=== PATIENT | female | born 1975 | race Caucasian/White ===

== ENCOUNTER → 2017-07-25 | Outpatient (CLI) | payer MEDICAID ==
--- NOTE | 2017-07-25 18:56 | Diagnostic Imaging Report ---
INDICATION: Dysmenorrhea. TECHNIQUE: Multiple real-time grayscale images were obtained of the pelvis in various projections endovaginally. Transabdominal imaging was also performed. FINDINGS: The uterus measures 9.5 x 5.6 x 5.1 cm. Endometrium is 9 mm in thickness. There is a slightly rounded area of increased echogenicity projected within the endometrium measuring 8 mm in size. No myometrial mass is seen. The right ovary measures 3.4 x 3.2 x 1.7 cm and the left ovary measures 2.2 x 2.1 x 1.5 cm. The right ovary does contain a 2.2 cm simple cyst. Multiple follicles on the left ovary are noted. There is blood flow bilaterally. No free fluid is seen. IMPRESSION: 1. 8 mm echogenic focus within the endometrium, nonspecific. This may represent a small polyp. 2. 2.2 cm simple right ovarian cyst. Dictated by: Dictated on workstation # [id number]
== END ==
LOC: RAD 12:10
PROVIDERS: ATTEND Obstetrics & Gynecology
DX: N85.8 Other specified noninflammatory disorders of uterus (principal); N83.201 Unspecified ovarian cyst, right side
CPT/HCPCS: 76830; 76856

== ENCOUNTER 2017-09-26 07:32 | Day surgery (SDC) | payer MEDICAID ==
[~2017-09-26] VITALS: Ht 154.9 cm; Wt 50.8 kg
[2017-09-26 08:00] VITALS: BP 109/51
[2017-09-26] MEDS ORDERED: DEXAMETHASONE 10 MG/ML (DECADRON) 1 ML VIAL ONE (08:00)
[2017-09-26] MEDS ORDERED: SEVOFLURANE (ULTANE) 15 ML INHAL SOLN ONE (08:00)
[2017-09-26] MEDS ORDERED: LIDOCAINE PF 2% 5 ML (XYLOCAINE) VIAL ONE (08:00)
[2017-09-26] MEDS ORDERED: proPOfol 200 MG/20 ML (DIPRIVAN) VIAL IV ONE (08:00)
[2017-09-26] MEDS ORDERED: ONDANSETRON 4 MG/2 ML (SDV) Z0FRAN ONE (08:00)
[2017-09-26] MEDS ORDERED: fentaNYL INJECTION 100 MCG/2 ML AMP ONE (08:01)
[2017-09-26] MEDS ORDERED: MIDAZOLAM 2 MG/2 ML (VERSED) VIAL ONE (08:01)
[2017-09-26] MEDS ORDERED: LACTATED RINGERS 1,000 ML IV PRN (08:07)
[2017-09-26 08:23] LABS: BASOPHILS % (AUTO) 1 % (0-10); EOSINOPHILS # (AUTO) 0.3 10^3/uL (0.0-0.3); EOSINOPHILS % (AUTO) 4 % (0-10); HEMATOCRIT 36 % (35-52); HEMOGLOBIN 11.9 G/DL (11.5-16.0); LYMPHOCYTES % (AUTO) 31 % (12-44); MEAN CORPUSCULAR HEMOGLOBIN 31 PG (25-34); MEAN CORPUSCULAR HGB CONC 33 G/DL (32-36); MEAN CORPUSCULAR VOLUME 94 FL (80-99); MEAN PLATELET VOLUME 12.1 FL (7.4-10.4); MONOCYTES # (AUTO) 0.5 X 10^3 (0.0-1.0); MONOCYTES % (AUTO) 8 % (0-12); NEUTROPHILS # (AUTO) 3.6 X 10^3 (1.8-7.8); NEUTROPHILS % (AUTO) 56 % (42-75); PLATELET COUNT 139 10^3/uL (130-400); RED BLOOD COUNT 3.83 10^6/uL (4.35-5.85); RED CELL DISTRIBUTION WIDTH 13.7 % (10.0-14.5); WHITE BLOOD COUNT 6.4 10^3/uL (4.3-11.0)
[2017-09-26] MEDS ORDERED: D5 LR IV SOLUTION 1,000 ML IV SCH (08:43)
--- NOTE | 2017-09-26 08:43 | Progress Note-Pre Operative ---
Pre-Operative Progress Note H&P Reviewed The H&P was reviewed, patient examined and no changes noted. Date Seen by Provider: Sep 26, 2017 Time Seen by Provider: 08:30 Date H&P Reviewed: Sep 26, 2017 Time H&P Reviewed: 08:00 Pre-Operative Diagnosis: AUB, Dysmenorrhea VERA VAZQUEZ DO Sep 26, 2017 8:43 am
[2017-09-26] MEDS ORDERED: HYDROcodone/APAP 5 MG/325 MG (LORTAB) TAB PO PRN (08:45)
[2017-09-26] MEDS ORDERED: KETOROLAC 30 MG/ML VIAL IVP ONE (08:45)
[2017-09-26] MEDS ORDERED: ONDANSETRON 4 MG/2 ML (SDV) Z0FRAN IVP PRN ×2 (08:45→09:30)
--- NOTE | 2017-09-26 08:45 | Discharge Inst-Women's Service ---
Discharge Inst-Women's Serv Depart Medication/Instructions New, Converted or Re-Newed RX: RX on Chart Consults/Follow Up Additional Follow Up: Yes Orders/Referrals Dr. Vazquez in 2-3 weeks Activity Activity: Activity as Tolerated Driving Instructions: No Driving for 1 Week NO SMOKING: NO SMOKING Nothing Inside Vagina: No Douching, No [place], No Tampons Diet Discharge Diet: No Restrictions Symptoms to Report to : Bleeding Excessive, Pain Increased, Fever Over 101 Degrees F, Vaginal Bleeding Increase, Questions/Concerns For Any Problems or Questions: Contact Your Physician VERA VAZQUEZ DO Sep 26, 2017 8:44 am
[2017-09-26] MEDS ORDERED: ACHD5005 PO (08:46)
[2017-09-26] MEDS ORDERED: IBUP-1773 PO (08:46)
[2017-09-26] MEDS ORDERED: BUPIVACAINE 0.25% 30 ML (SENSORCAINE) VIAL ONE (09:14)
[2017-09-26] MEDS ORDERED: morphine INJ 10 MG/ML 1ML (SYR OR VIAL) ONE (09:19)
[2017-09-26] MEDS ORDERED: morphine INJ 10 MG/ML 1ML (SYR OR VIAL) IVP PRN (09:30)
[2017-09-26 10:05] VITALS: BP 103/82
[2017-09-26 10:35] VITALS: BP 97/65
[2017-09-26 11:05] VITALS: BP 97/58
[2017-09-26 11:10] VITALS: BP 97/58
--- NOTE | 2017-09-26 14:06 | Anesthesia-General Post-Op ---
General Patient Condition Mental Status/LOC: Same as Preop Cardiovascular: Satisfactory Nausea/Vomiting: Absent Respiratory: Satisfactory Pain: Controlled Complications: Absent Post Op Complications Complications None Follow Up Care/Instructions Patient Instructions None needed. Anesthesia/Patient Condition Patient Condition Patient is doing well, no complaints, stable vital signs, no apparent adverse anesthesia problems. No complications reported per nursing. [place] [facility] [place] No ANNY CANAS CRNA Sep 26, 2017 14:06
--- NOTE | 2017-09-26 16:37 | OPERATIVE REPORT ---
DATE OF SERVICE: PREOPERATIVE DIAGNOSES: 1. A 40-year-old female with abnormal uterine bleeding. 2. Dysmenorrhea. POSTOPERATIVE DIAGNOSES: 1. A 40-year-old female with abnormal uterine bleeding. 2. Dysmenorrhea. PROCEDURE: D and C hysteroscopy. SURGEON: Victoriano Chamberlain DO ANESTHESIA: General endotracheal. ESTIMATED BLOOD LOSS: Minimal. URINE OUTPUT: 20 mL drained clear at the end of procedure. FLUIDS: 800 mL lactated Ringer's solution. SPECIMENS SENT: Endometrial curettings including endometrial polyp. INDICATIONS FOR PROCEDURE: This 42-year-old female with a consultation in my office for history ongoing of heavy painful periods that have become acutely more heavy and painful in the last six months. We discussed endometrial biopsy in the office versus proceeding with D and C hysteroscopy. Initial testing in the office for infections, etiology was negative and endocrinologic etiology was also found to be negative. I discussed with the patient in detail risks of the procedure including risk of bleeding, infection, damage to any surrounding structures including, but not limited to bowel, bladder, ureter, kidneys, possible need for a hysterectomy down the line, postoperative expectation, recovery timeframe, risk from anesthesia and even . After everything was discussed with the patient, consent was obtained in the preoperative area. The patient was taken to the operating room. OPERATIVE REPORT IN DETAIL: Once in the operating room, general anesthesia was found to be adequate, placed in dorsal lithotomy position, prepped and draped in normal sterile fashion. Straight catheterization is used to drain the bladder. A weighted speculum inserted into the patient's vagina. A ring retractor was used to visualize the cervix, which was grasped at 12 o'clock position using the long Allis clamp and then performed paracervical block at 3 and 9 o'clock positions on the cervix using 0.25% Marcaine, 5 mL were injected at each site. Care was taken to aspirate before injecting. After which I gently sound the uterine cavity that was found to be 8 cm. I then able to advance an 8 mm hysteroscope into the uterus without any dilatation. Upon entry, I used normal saline as my visual medium. I am able to use the Truclear device to manage my fluid. There is evidence of a potential endometrial polyp on the anterior fundal aspect of the uterus, otherwise grossly normal appearing uterine cavity performing a gentle curettage of all endometrial cavity. I am able to collect a small to moderate amount of endometrial tissue. Reinspection of this area using the hysteroscope reveals resolution of this polyp that was previously seen after which there was no active bleeding noted. All instruments were removed from the patient's vagina. The patient tolerated the procedure well and sent to recovery area in stable condition. Lap and sponge counts correct at the end of the procedure and all counts correct. Job ID: [id number] DocumentID: [id number] Dictated Date: 09/26/2017 09:36:19 Back Seam Stitcher Date: 09/26/2017 16:36:45 Dictated By: DO HAKEEM WOODRUFF
[2017-10-24] MEDS ORDERED: DOCU100C37 PO (07:15)
[2017-10-24] MEDS ORDERED: SIME80TA16 PO (07:15)
[2017-10-24] MEDS ORDERED: HYDR-34 PO (07:15)
[2017-10-24] MEDS ORDERED: IBUP-844 PO (07:15)
== END 2017-09-26 11:10 | disposition home or self-care (01) ==
LOC: SDC 07:32
PROVIDERS: ATTEND Obstetrics & Gynecology
DX: N94.6 Dysmenorrhea, unspecified (principal); F17.210 Nicotine dependence, cigarettes, uncomplicated
CPT/HCPCS: 36415; 84703; 85025; 86850; 86900; 86901; 87081; 88305; 94664

== ENCOUNTER 2017-10-21 08:55 | Outpatient (CLI) | payer MEDICAID ==
[~2017-10-21] VITALS: Ht 154.9 cm; Wt 50.8 kg
[~2017-10-21 08:55] MED LIST: ACHD5005 PO; IBUP-1773 PO
[2017-10-21] MEDS ORDERED: SUCR1TAB36 PO (09:05)
[2017-10-21] MEDS ORDERED: OMEP40CA36 PO (09:05)
== END 2017-10-21 09:46 | disposition home or self-care (01) ==
LOC: PREOP 08:55
PROVIDERS: ATTEND Obstetrics & Gynecology
DX: Z01.818 Encounter for other preprocedural examination (principal)
CPT/HCPCS: 87081

== ENCOUNTER 2017-10-24 06:45 | Day surgery (SDC) | payer MEDICAID ==
[~2017-10-24] VITALS: Ht 154.9 cm; Wt 50.8 kg
[2017-10-24 06:45] VITALS: BP 100/55
[~2017-10-24 06:45] MED LIST changes: +OMEP40CA36 PO; +SUCR1TAB36 PO
[2017-10-24] MEDS ORDERED: BUPIVACAINE 0.25% 30 ML (SENSORCAINE) VIAL ONE (06:52)
[2017-10-24] MEDS: LACTATED RINGERS 1,000 ML IV PRN ×3 (07:00→09:20)
[2017-10-24] MEDS ORDERED: ceFAZolin INJECTION 1,000 MG in NS (IVPB) 50 ML IV ONE (07:00)
[2017-10-24] MEDS ORDERED: metroNIDAZOLE 500MG/100ML IVPB 100 ML IV ONE (07:00)
[2017-10-24] MEDS ORDERED: fentaNYL INJECTION 100 MCG/2 ML AMP ONE ×2 (07:01→09:16)
[2017-10-24] MEDS ORDERED: DEXAMETHASONE 10 MG/ML (DECADRON) 1 ML VIAL ONE (07:01)
[2017-10-24] MEDS ORDERED: MIDAZOLAM 2 MG/2 ML (VERSED) VIAL ONE (07:01)
[2017-10-24] MEDS ORDERED: LACTATED RINGERS 1,000 ML IV ONE (07:01)
[2017-10-24] MEDS ORDERED: ROCURONIUM 10 MG/ML 5 ML SYRINGE IV ONE (07:01)
[2017-10-24] MEDS ORDERED: proPOfol 200 MG/20 ML (DIPRIVAN) VIAL IV ONE (07:01)
[2017-10-24] MEDS ORDERED: ONDANSETRON 4 MG/2 ML (SDV) Z0FRAN ONE (07:01)
[2017-10-24] MEDS ORDERED: LIDOCAINE PF 2% 5 ML (XYLOCAINE) VIAL ONE (07:01)
[2017-10-24] MEDS ORDERED: KETOROLAC 30 MG/ML VIAL ONE (07:01)
--- NOTE | 2017-10-24 07:08 | Progress Note-Pre Operative ---
Pre-Operative Progress Note H&P Reviewed The H&P was reviewed, patient examined and no changes noted. Date Seen by Provider: Oct 24, 2017 Time Seen by Provider: 07:08 Date H&P Reviewed: Oct 24, 2017 Time H&P Reviewed: 07:00 Pre-Operative Diagnosis: Endometrial hyperplasia, AUB VERA VAZQUEZ DO Oct 24, 2017 07:08
--- NOTE | 2017-10-24 07:12 | Discharge Inst-Women's Service ---
Discharge Inst-Women's Serv Depart Medication/Instructions New, Converted or Re-Newed RX: RX on Chart Consults/Follow Up Additional Follow Up: Yes Orders/Referrals Dr. Chamberlain in 7-10 days and in 8 weeks Activity Activity: Activity as Tolerated Driving Instructions: No Driving for 1 Week NO SMOKING: NO SMOKING Nothing Inside Vagina: No Douching, No [place], No Tampons Diet Discharge Diet: No Restrictions Symptoms to Report to : Bleeding Excessive, Pain Increased, Fever Over 101 Degrees F, Vaginal Bleeding Increase, Questions/Concerns For Any Problems or Questions: Contact Your Physician Skin/Wound Care Infection Signs and Symptoms: Increased Redness, Foul Odor of Wound, Increased Drainage, Skin Itchy or Has a Rash, Increased Swelling, Temperature Above 101 F Operative Area Clean and Dry: Keep Incision Clean/Dry Stitches/[place]/Dermabond: Dermabond, Care of Stitches Bathing Instructions: VERA Weinberg DO Oct 24, 2017 07:12
[2017-10-24] MEDS ORDERED: ANTACID SUSP 30 ML UDC (MYLANTA) PO PRN (07:15)
[2017-10-24] MEDS ORDERED: HYDROcodone/APAP 7.5 MG/325 MG (LORTAB, LORCET PLUS) TABLET PO PRN (07:15)
[2017-10-24] MEDS ORDERED: DOCUSATE SODIUM 100 MG (COLACE) CAP PO PRN (07:15)
[2017-10-24] MEDS ORDERED: HYDR-34 PO (07:15)
[2017-10-24] MEDS ORDERED: IBUP-844 PO (07:15)
[2017-10-24] MEDS ORDERED: SIME80TA16 PO (07:15)
[2017-10-24] MEDS ORDERED: CHLORASEPTIC LOZENGE MM PRN (07:15)
[2017-10-24] MEDS ORDERED: DOCU100C37 PO (07:15)
[2017-10-24] MEDS ORDERED: ZOLPIDEM 5 MG (AMBIEN) TAB PO PRN (07:15)
[2017-10-24] MEDS ORDERED: ONDANSETRON 4 MG/2 ML (SDV) Z0FRAN IV PRN (07:15)
[2017-10-24] MEDS ORDERED: SIMETHICONE 80 MG (MYLICON) CHEW PO PRN (07:15)
[2017-10-24 07:27] LABS: BASOPHILS % (AUTO) 1 % (0-10); EOSINOPHILS # (AUTO) 0.2 10^3/uL (0.0-0.3); EOSINOPHILS % (AUTO) 3 % (0-10); HEMATOCRIT 42 % (35-52); LYMPHOCYTES # (AUTO) 1.5 X 10^3 (1.0-4.0); LYMPHOCYTES % (AUTO) 25 % (12-44); MEAN CORPUSCULAR HEMOGLOBIN 31 PG (25-34); MEAN CORPUSCULAR HGB CONC 33 G/DL (32-36); MEAN CORPUSCULAR VOLUME 92 FL (80-99); MEAN PLATELET VOLUME 11.5 FL (7.4-10.4); MONOCYTES # (AUTO) 0.6 X 10^3 (0.0-1.0); MONOCYTES % (AUTO) 9 % (0-12); NEUTROPHILS # (AUTO) 3.7 X 10^3 (1.8-7.8); NEUTROPHILS % (AUTO) 63 % (42-75); PLATELET COUNT 180 10^3/uL (130-400); RED BLOOD COUNT 4.58 10^6/uL (4.35-5.85); RED CELL DISTRIBUTION WIDTH 13.5 % (10.0-14.5); WHITE BLOOD COUNT 5.9 10^3/uL (4.3-11.0)
[2017-10-24] MEDS ORDERED: PHENYLEPHRINE 100 MCG/ML 10 ML (ANESTHESIA) SYR ONE (08:19)
[2017-10-24] MEDS ORDERED: GLYCOPYRROLATE 0.2 MG/ML (ROBINUL) 2 ML VIAL ONE ×2 (09:09→09:10)
[2017-10-24] MEDS ORDERED: NEOSTIGMINE 1 MG/ML 5 ML SYRINGE ONE (09:09)
[2017-10-24] MEDS ORDERED: SEVOFLURANE (ULTANE) 15 ML INHAL SOLN ONE (09:18)
[2017-10-24] MEDS: KETOROLAC 30 MG/ML VIAL IV PRN ×3 (09:20→22:50)
[2017-10-24] MEDS ORDERED: HYDROmorphone 1 MG/ML (DILAUDID) 1 ML SYRINGE ONE (09:35)
[2017-10-24] MEDS ORDERED: MEPERIDINE (DEMEROL) INJ 50 MG/ML IVP PRN (09:45)
[2017-10-24] MEDS ORDERED: fentaNYL INJECTION 100 MCG/2 ML AMP IVP PRN (09:45)
[2017-10-24] MEDS ORDERED: ONDANSETRON 4 MG/2 ML (SDV) Z0FRAN IVP PRN (09:45)
[2017-10-24] MEDS: HYDROmorphone 1 MG/ML (DILAUDID) 1 ML SYRINGE IV PRN ×2 (09:52→10:02)
[2017-10-24] MEDS: LACTATED RINGERS 1,000 ML IV SCH ×5 (11:10→19:56)
[2017-10-24 12:00] VITALS: BP 92/53
[2017-10-24] MEDS ORDERED: NS IV 500 ML 500 ML ONE (14:19)
[2017-10-24] MEDS ORDERED: FUROSEMIDE 40 MG/4 ML INJ (LASIX) IVP ONE (14:45)
[2017-10-24] MEDS ORDERED: FUROSEMIDE 40 MG/4 ML INJ (LASIX) ONE (14:50)
--- NOTE | 2017-10-24 15:50 | OPERATIVE REPORT ---
DATE OF SERVICE: PREOPERATIVE DIAGNOSES: 1. A 42-year-old female with endometrial hyperplasia. 2. Abnormal uterine bleeding. POSTOPERATIVE DIAGNOSES: 1. A 42-year-old female with endometrial hyperplasia. 2. Abnormal uterine bleeding. PROCEDURE: Robotic-assisted total laparoscopic hysterectomy with bilateral salpingectomy. SURGEON: Dr. Victoriano Vazquez. ASSISTANCE REPRESENTATIVE: AARON Wheatley. ANESTHESIA: General endotracheal. ESTIMATED BLOOD LOSS: Minimal. URINE OUTPUT: 20 mL clear at the end of the procedure. FLUIDS: 2 liters of lactated Ringer solution. FINDINGS: A slightly enlarged uterus that appears grossly normal from the serosal surface. Grossly normal bilateral fallopian tubes with evidence of prior tubal ligation. Grossly normal bilateral ovaries. SPECIMEN SENT: Uterus, bilateral fallopian tubes. INDICATION FOR PROCEDURE: This 42-year-old female is the patient who I had initially seen in my office for abnormal heavy uterine bleeding. She underwent D and C, which revealed endometrial hyperplasia at the time of D and C pathology collection. I discussed with the patient this findings in the office. She was a longtime smoker and wished to proceed with hysterectomy if at all possible and hyperplasia did give us another reason to consider hysterectomy. She was given the option of watching and waiting and resampling the tissue in 6 months. However, at this point, she wishes to move forward with more aggressive measures. Risk of hysterectomy was discussed with the patient in detail including risks of bleeding, infection, damage to surrounding structures including, but not limited to bowel, bladder, ureter, kidneys, pre and postoperative expectations as well as postoperative complications and postoperative followup were all discussed with the patient. After all of her questions were answered, consent was obtained. The patient was taken to the operating room. OPERATIVE REPORT IN DETAIL: Once in the operating room, general anesthesia was found to be adequate, placed in dorsal lithotomy position, prepped and draped in normal sterile fashion. A weighted speculum was inserted in the patient's vagina after Gonzales catheter was placed using sterile technique. Weighted speculum was used to visualize the cervix, which was grasped at 12 o'clock position using a long Allis clamp and 0 Vicryl suture was placed in the anterior lip of the cervix to allow for excellent retraction of the cervix. I then removed the Allis clamp and selected an 8 cm Nell uterine manipulator tip after the uterus was sounded to 8 cm. I advanced the 8 cm Nell uterine manipulator tip into the uterine fundus deploying the balloon and advanced a 3.5 cm colpotomy ring around the vaginal fornix. Once this was in place, I am able to appreciate excellent bimanual manipulation. I then turned my attention to the abdomen where a change of gloves was performed. Infraumbilically, I infiltrated this area using 0.25% Marcaine and make an 8 mm incision and directed a Veress needle through this incision until intraperitoneal placement was confirmed using saline drop test. insufflated using CO2 gas and opening pressure of 5 mmHg is noted. I proceeded to maximum pressure of 15 mmHg, at which point, I removed the Veress needle and introduced an 8 mm blunt da Andrew camera trocar. Once this was in place, I am able to confirm intraperitoneal placement using the da Andrew laparoscope. I then had the patient placed in steep Trendelenburg and made to visualize all my findings as described above. I placed two lateral trocars approximately 8 cm lateral to my infraumbilical trocar. The skin was infiltrated using 0.25% Marcaine and incisions were made with a knife and the trocars were placed under direct visualization of the laparoscope. Once these were in place, I did bring in the da Andrew robot and docked in the appropriate fashion placing the vessel sealer in the left hand and a monopolar shear in the right hand. I took my place at the operative console and performed the following dissection bilaterally. Starting at the uteroovarian ligament, I bipolar cauterized and transected using the vessel sealer. I then created a window in the mesosalpinx and took this laterally using the vessel sealer transecting the fallopian tube from the mesosalpinx. I then am able to grasp the round ligament, bipolar cauterized and transect this using the vessel sealer. I then grasped the entire broad ligament, bipolar cauterized and transected using the vessel sealer down to the level of the lower uterine segment, at which point, I the anterior and posterior leaflets of the broad ligament. The anterior leaflet was taken around to the anterior vaginal fornix. The posterior leaflet dissection was taken around to the posterior vaginal fornix, which allows me to skeletonize the uterine vessels laterally staying clear of the ureter and bipolar cauterize these using the vessel sealer. I then created a colpotomy at 12 o'clock using a monopolar shear, able to visualize the Nell colpotomy ring and I take my colpotomy circumferentially around the vaginal fornix amputating the cervix away from the vagina. The specimen and the fallopian tubes were then all removed through the vagina. The vaginal cuff was then closed in the lateral vaginal apices using 2-0 Vicryl suture in a [id number] fashion, colposuspending them to the uterosacral ligaments. I then closed the remainder of the vaginal cuff using 2-0 V-Loc in a running fashion, after which there was no active bleeding noted from any of my dissection planes. I then converted back to laparoscopy and docking the robot and copiously irrigated the pelvis using normal saline. I placed FloSeal hemostatic agent over my vaginal cuff dissection planes to ensure excellent postoperative hemostasis. I then had the patient taken out of steep Trendelenburg were I removed the lateral trocars under visualization of the laparoscope. The infraumbilical trocar was left in place both to release insufflation and to introduce 10 mL of 0.25% Marcaine into the peritoneal cavity for postoperative pain management. I then removed this trocar as well. The skin was reapproximated using 4-0 Monocryl in interrupted subcuticular stitches. Dermabond was applied to the incision and Band-Aids were placed over these. Gonzales catheter was left in place. The patient tolerated the procedure well and was taken to recovery area in stable condition. Lap and sponge count was correct at the end of the procedure. Instrument counts were correct as well. Job ID: [id number] DocumentID: [id number] Dictated Date: 10/24/2017 09:50:54 Stamps Or Coins Salesperson Date: 10/24/2017 15:49:42 Dictated By: VICTORIANO VAZQUEZ DO
[2017-10-24 16:00] VITALS: BP 91/57
[2017-10-24 20:00] VITALS: BP 95/55
[2017-10-25] MEDS ORDERED: IBUPROFEN 600 MG (MOTRIN) TAB PO PRN
[2017-10-25 00:10] VITALS: BP 91/50
[2017-10-25] MEDS: LACTATED RINGERS 1,000 ML IV SCH (03:42)
[2017-10-25 04:10] VITALS: BP 94/49
[2017-10-25] MEDS ORDERED: NS IV 500 ML 500 ML IV SCH (06:45)
[2017-10-25 08:39] VITALS: BP 98/43
--- NOTE | 2017-10-25 08:51 | Progress Note-Standard ---
Standard Progress Note Progress Notes/Assess & Plan Date Seen by Provider: Oct 25, 2017 Time Seen by Provider: 08:50 Progress/Assessment & Plan Patient kept overnight due to urinary retention. Had straight cath last night, tried to do this again this morning and the patient refused. Trial of bethachol ordered this morning, may consider replacing catheter if no void. Vital Sign - Last 24 Hours 10/24/17 10/24/17 10/24/17 10/24/17 10:35 12:00 16:00 20:00 Temp 97.2 97.6 98.0 Pulse 44 56 56 Resp 16 18 18 B/P (MAP) 92/53 (66) 91/57 (68) 95/55 (68) Pulse Ox 94 98 98 O2 Delivery Room Air Room Air Room Air Room Air 10/24/17 10/25/17 10/25/17 10/25/17 21:00 00:10 04:10 08:08 Temp 97.8 97.9 Pulse 54 52 Resp 18 18 B/P (MAP) 91/50 (64) 94/49 (64) Pulse Ox 98 97 O2 Delivery Room Air Room Air Room Air 10/25/17 08:39 Temp 98.4 Pulse 43 Resp 20 B/P (MAP) 98/43 (61) Pulse Ox 97 O2 Delivery Room Air Intake and Output 10/24/17 10/24/17 10/25/17 15:00 23:00 07:00 Intake Total 3110 ml 740 ml 200 ml Output Total 120 ml 0 ml 300 ml Balance 2990 ml 740 ml -100 ml VERA VAZQUEZ DO Oct 25, 2017 8:51 am
[2017-10-25] MEDS ORDERED: BETHANECHOL 25 MG (URECHOLINE) TAB PO NR (08:58)
[2017-10-25 11:55] VITALS: BP 98/43
--- NOTE | 2017-10-25 15:32 | Anesthesia-General Post-Op ---
General Patient Condition Mental Status/LOC: Same as Preop Cardiovascular: Satisfactory Nausea/Vomiting: Absent Respiratory: Satisfactory Pain: Controlled Complications: Absent Post Op Complications Complications None Follow Up Care/Instructions Patient Instructions None needed. Anesthesia/Patient Condition Patient Condition Patient is doing well, no complaints, stable vital signs, no apparent adverse anesthesia problems. No complications reported per nursing. [place] [facility] [place] ALEXANDRIA MEJÍA CRNA Oct 25, 2017 15:32
== END 2017-10-25 11:55 | disposition home or self-care (01) ==
LOC: SDC 06:45 → WS 11:12 → SDC 10-25 11:55
PROVIDERS: ATTEND Obstetrics & Gynecology
DX: N85.00 Endometrial hyperplasia, unspecified (principal); N93.9 Abnormal uterine and vaginal bleeding, unspecified; D25.2 Subserosal leiomyoma of uterus; N83.8 Other noninflammatory disorders of ovary, fallopian tube and broad ligament; R33.9 Retention of urine, unspecified; F17.210 Nicotine dependence, cigarettes, uncomplicated; K21.9 Gastro-esophageal reflux disease without esophagitis
CPT/HCPCS: 36415; 84703; 85025; 86850; 86900; 86901; 94664

== ENCOUNTER → 2020-12-06 | Outpatient (CLI) | payer MEDICAID ==
[~2020-12-06] MED LIST changes: +DOCU100C37 PO; +HYDR-34 PO; +IBUP-844 PO; -OMEP40CA36 PO; +OMEP40CA6 PO; +SIME80TA16 PO
--- NOTE | 2020-12-06 14:19 | Diagnostic Imaging Report ---
INDICATION: Palpable lump in the left breast. COMPARISON: Correlation is made with the diagnostic mammogram from earlier this same day. TECHNIQUE: Sonographic interrogation of the area of palpable abnormality in the inner left breast was performed. This corresponds to the 9:30 to 10 o'clock location. FINDINGS: There are two cystic lesions at this location approximately 2 cm from the nipple. One cyst measures 9 mm x 8 mm x 10 mm. The second cyst measures 12 mm x 7 mm x 9 mm. Both contain a small amount of internal debris. There is posterior acoustic enhancement. No internal vascularity is present. No solid masses are detected. IMPRESSION: Slightly complex cysts at the 9:30 to 10:00 location of the left breast 2 cm from the nipple, corresponding to the patient's palpable abnormality. These have benign features. The patient may return to routine annual screening mammography. ACR BI-RADS Category 2: Benign findings. Dictated by: Dictated on workstation # [id number]
--- NOTE | 2020-12-06 14:20 | Diagnostic Imaging Report ---
INDICATION: Palpable lump left breast. COMPARISON: Correlation is made with the prior mammograms from 11/12/2018 and 09/10/2017. TECHNIQUE: 2D and 3D bilateral diagnostic mammography was performed with CAD. A BB marker was placed at the area of palpable abnormality in the medial left breast. FINDINGS: Both breasts are heterogeneously dense, limiting the sensitivity of mammography. No dominant mass or malignant appearing microcalcifications are seen. There are occasional benign calcifications noted. The axillae are unremarkable. IMPRESSION: No mammographic features suspicious for malignancy are identified. Even so, directed sonographic interrogation of the area of palpable abnormality in the left breast is recommended and will be performed today. ACR BI-RADS Category 0: Incomplete. (Needs additional imaging evaluation). Result letter will be mailed to the patient. Note: At least 10% of breast cancer is not imaged by mammography. Dictated by: Dictated on workstation # [id number]
== END ==
LOC: RAD 12:32
PROVIDERS: ATTEND Family Medicine
DX: N60.02 Solitary cyst of left breast (principal)
CPT/HCPCS: 76642; 77062; 77066

== ENCOUNTER 2020-12-12 05:37 | Outpatient (CLI) | payer MEDICAID ==
[~2020-12-12] VITALS: Ht 154 cm; Wt 50.0 kg
[2020-12-12] MEDS ORDERED: TRM50T PO (10:40)
== END 2020-12-12 10:44 | disposition home or self-care (01) ==
LOC: PREOP 05:37
PROVIDERS: ATTEND Surgery
DX: Z01.818 Encounter for other preprocedural examination (principal)

== ENCOUNTER 2020-12-15 08:47 | Day surgery (SDC) | payer MEDICAID ==
[~2020-12-15] VITALS: Ht 154 cm; Wt 50.0 kg
[2020-12-15] VITALS (7 sets, daily range): BP systolic 105–118; BP diastolic 50–75
[~2020-12-15 08:47] MED LIST changes: +TRM50T PO
--- OUTSIDE RECORDS SUMMARY | 2020-12-15 08:51 | XMS REPORT | Clinical Summary ---
Author Author [facility] Organization [facility] Address Unknown Phone Unavailable Care Team Providers Care Account Services Analyst Name Role Phone Paige Harley MD PCP Source Comments Some departments are not documenting in the electronic medical record. If you d o not see the information that you expected, contact Release of Information in [facility] [employer] Information Management department at [phone] for further assistan ce in locating additional records.[facility] Allergies Comments Active Allergy Reactions Severity Noted Date Codeine Sulfate UNKNOWN Low 02/24/2019 Penicillins UNKNOWN Low 02/24/2019 Medications End Date Status Medication Sig Dispensed Refills Start Date Active ondansetron (ZOFRAN) 4 mg Take 4 mg by 0 tablet mouth every 8 hours as needed for Nausea or Vomiting. Active traMADoL (ULTRAM) 50 mg 0 tablet 1 Active Problems Problem Noted Date Degenerative disc disease, lumbar 04/06/2020 Synovial cyst of lumbar spine 03/04/2019 Encounters Care Team Description Date Type Specialty Hector Pereyra DO General Question (spine injections) 12/08/2020 Telephone Rehabilitation [facility] from Last 3 Months Surgical History Surgery Date Site/Laterality Comments HX HAND SURGERY Bilateral GALLBLADDER SURGERY NASAL SINUS SURGERY HYSTERECTOMY Medical History Medical History Date Comments Hip pain Sprain and strain of wrist Carpal tunnel syndrome Cholesterolosis gallbladder Family History Medical History Relation Name Comments Cancer Father Cancer Mother Relation Name Status Comments Father Alive Mother Social History Date Tobacco Use Types Packs/Day Years Used Light Tobacco Smoker Smokeless Tobacco: Never Used Comments Alcohol Use Standard Drinks/Week Not Currently 0 (1 standard drink = 0.6 o z pure alcohol) Sex Assigned at Date Recorded 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 Vital Signs Reading Time Taken Comments Vital Sign 107/85 04/25/2020 10:38 AM TEAM AUTOMOBILE ASSEMBLER Blood Pressure 56 04/25/2020 9:43 AM TEAM AUTOMOBILE ASSEMBLER Pulse 36.5 C (97.7 F) 04/25/2020 10:38 AM TEAM AUTOMOBILE ASSEMBLER Temperature - - Respiratory Rate 99% 04/25/2020 10:38 AM TEAM AUTOMOBILE ASSEMBLER Oxygen Saturation - - Inhaled Oxygen Concentration 51.4 kg (113 lb 4.8 oz) 04/25/2020 9:43 AM TEAM AUTOMOBILE ASSEMBLER Weight 157.5 cm (5' 2") 04/25/2020 9:43 AM TEAM AUTOMOBILE ASSEMBLER Height 20.72 04/25/2020 9:43 AM TEAM AUTOMOBILE ASSEMBLER Body Mass Index Plan of Treatment Health Maintenance Due Date Last Done Comments HIV SCREENING 07/07/1990 DTAP/TDAP VACCINES (1 - 07/07/1993 Tdap) HEPATITIS C SCREENING 07/07/1993 PHYSICAL (COMPREHENSIVE) 07/07/1993 EXAM CERVICAL CANCER SCREENING 07/07/1996 BREAST CANCER SCREENING 2015 INFLUENZA VACCINE 10/23/2020 Results Not on filefrom Last 3 Months Insurance Type Payer Benefit Subscriber ID Effective Phone Address Plan / Dates Group AETNA MEDICAID AETNA [id number] 2018-P [facility] [address] ([place]) [place] [phone] Advance Directives 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
--- OUTSIDE RECORDS SUMMARY | 2020-12-15 08:52 | XMS REPORT | Encounter Summary ---
Author Author [facility] Organization [facility] Address Unknown Phone Unavailable Care Team Providers Care Combiner Operator Name Role Phone Paige Harley MD PCP Reason for Visit * Reason Onset Date Comments General Question 12/08/2020 spine injections Encounter Details Care Team Description [place] [address] [place] [address] [phone] General Question (spine injections) 12/08/2020 Telephone Comprehensive Spine Rehab Med: [facility]: 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 encounter Functional Status Date of Assessment Functional Status Response 04/06/2020 Does the patient have a hearing impairment: No 04/06/2020 Does the patient have a visual impairment: Yes 04/06/2020 Does the patient have impaired ambulation: Yes 04/06/2020 Does the patient have an activity of daily living No (ADL) impairment: 04/06/2020 Does the patient have an instrumental activity of No daily living (IADL) impairment: Date of Assessment Cognitive Status Response 04/06/2020 Does the patient have a cognitive impairment: No documented as of this encounter Miscellaneous Notes * Telephone Encounter - Molly Galarza RN - 12/08/2020 1:36 PM CDT VM from patient - needs to speak with somebody about spine shots Spoke with patient - states she comes in and get shots and doesn't feel they are working because she is sore again and would like to go a different route. Janny willis with making a follow up appointment for updated plan of care documented in this encounter Plan of Treatment Not on filedocumented as of this encounter Visit Diagnoses Not on filedocumented in this encounter Additional Health Concerns Assessment Noted Time A fall risk assessment has been completed for the pat ient 04/06/2020 9:01 AM CHAIN SAW MECHANIC documented as of this encounter
[2020-12-15] MEDS ORDERED: CLINDAMYCIN 600 MG/50 ML IVPB 50 ML IV ONE (09:00)
[2020-12-15] MEDS: LACTATED RINGERS 1,000 ML IV PRN ×2 (09:20→11:38)
[2020-12-15] MEDS ORDERED: MULT-1136 PO (09:28)
[2020-12-15] MEDS ORDERED: LIDOCAINE/EPI 1%-1:100,000 (XYLOCAINE) 10 ML ONE (09:34)
--- NOTE | 2020-12-15 10:33 | Progress Note-Pre Operative ---
Pre-Operative Progress Note H&P Reviewed The H&P was reviewed, patient examined and no changes noted. Date Seen by Provider: Dec 15, 2020 Time Seen by Provider: 10:33 Date H&P Reviewed: Dec 15, 2020 Time H&P Reviewed: 10:33 Pre-Operative Diagnosis: left breast mass AURORA SIMPSON DO Dec 15, 2020 10:33
[2020-12-15] MEDS ORDERED: proPOfol 200 MG/20 ML (DIPRIVAN) VIAL IV ONE (10:34)
[2020-12-15] MEDS ORDERED: fentaNYL INJ 100 MCG/2 ML AMP ONE (10:34)
[2020-12-15] MEDS ORDERED: LIDOCAINE PF 2% 5 ML (XYLOCAINE) VIAL ONE (10:34)
[2020-12-15] MEDS ORDERED: MIDAZOLAM 2 MG/2 ML (VERSED) VIAL ONE (10:34)
[2020-12-15] MEDS ORDERED: ONDANSETRON 4 MG/2 ML (SDV) Z0FRAN ONE (10:34)
[2020-12-15] MEDS ORDERED: ATROPINE INJ 0.4 MG/ML SDV ONE (11:29)
[2020-12-15] MEDS ORDERED: SEVOFLURANE (ULTANE) 15 ML INHAL SOLN ONE (12:06)
[2020-12-15] MEDS ORDERED: MEPERIDINE (DEMEROL) INJ 50 MG/ML IVP ONE (12:15)
[2020-12-15] MEDS ORDERED: morphine INJ 10 MG/ML 1ML (SYR OR VIAL) IVP ONE (12:15)
[2020-12-15] MEDS ORDERED: ONDANSETRON 4 MG/2 ML (SDV) Z0FRAN IVP PRN (12:15)
[2020-12-15] MEDS ORDERED: HYDROmorphone 2 MG/ML VIAL (DILAUDID) IV ONE (12:15)
[2020-12-15] MEDS ORDERED: PROMETHAZINE INJ 25 MG/ML (PHENERGAN) AMP IVP ONE (12:15)
[2020-12-15] MEDS ORDERED: TRAM50TA3 PO (12:21)
--- NOTE | 2020-12-15 12:22 | Discharge Inst-Simple/Standard ---
Discharge Inst-Standard Discharge Medications New, Converted or Re-Newed RX: Transmitted to Pharmacy Patient Instructions/Follow Up Plan of Care/Instructions/FU: 2 weeks Kvng Activity as Tolerated: No Discharge Diet: Regular Diet Other Inst to Patient Follow up Appt: Make appointment for 2 week. Instructions: No lifting greater than 20 pounds. No strenuous activity. May shower in 24 hours, no tub bath or soaking. Use incentive spirometer at home as directed. No Smoking Skin/Wound Care: You have special glue over your incision that will fall off on it's own. Symptoms to Report: Appetite Changes, Extremity Discoloration, Numbness/Tingling, Swelling Increased, Bleeding Excessive, Eyesight Changes, Pain Increased, Urine Color Change, Constipation(Persistent), Fever over 101 degree F, Pain/Pressure in chest, Urinating Difficulty, Cough Up/Vomit Blood, Heart Beat Irreg/Pounding, Pain/Pressure in jaw, Vaginal Bleeding Increase, Cramps in feet or legs, Lightheadedness, Pain/Pressure in shoulder, Diarrhea(Persistent), Memory Changes Suddenly, Questions/Concerns, Weight gain consecutive days, Dizziness/Fainting, Nausea/Vomiting, Shortness of Breath, Weight gain over 2 pounds If questions or concerns contact your physician Or seek help at emergency department. AURORA SIMPSON DO Dec 15, 2020 12:22
--- NOTE | 2020-12-15 12:49 | Anesthesia-General Post-Op ---
General Patient Condition Mental Status/LOC: Same as Preop Cardiovascular: Satisfactory Nausea/Vomiting: Absent Respiratory: Satisfactory Pain: Controlled Complications: Absent Post Op Complications Complications None Follow Up Care/Instructions Patient Instructions None needed. Anesthesia/Patient Condition Patient Condition Patient is doing well, no complaints, stable vital signs, no apparent adverse anesthesia problems. No complications reported per nursing. KYLAH HERRMANN CRNA Dec 15, 2020 12:49
--- NOTE | 2020-12-15 22:32 | OPERATIVE REPORT ---
DATE OF SERVICE: 12/15/2020 PREOPERATIVE DIAGNOSIS: Left breast mass. POSTOPERATIVE DIAGNOSIS: Left breast mass. PROCEDURE: Excision of left breast mass, 2.5 x 2.5 cm. SURGEON: Aurora Calderon DO ANESTHESIA: General. ESTIMATED BLOOD LOSS: Minimal. COMPLICATIONS: None. INDICATIONS: The patient is a 45-year-old female with a left breast mass is tender and causes discomfort. She has had mammographic findings, which appeared to be benign. The patient has still significant tenderness and wishes to have this area removed. She understands risks and benefits and wishes to proceed. Consent was signed in the chart. DESCRIPTION OF PROCEDURE: The patient was taken to the operating suite. She was prepped and draped in sterile fashion. Surgical pause was performed. Local anesthetic was infiltrated just above the mass, just medial to the areola, a curved incision was made. Cautery was used to dissect down through the subcutaneous tissue where the mass was able to be palpated. It was able to be grasped and then cautery was used to dissect around it, removing it in its entirety. The measure was approximately 2.5 x 2.5 cm. Please see final pathology for actual dimensions. The wound was then irrigated with copious amounts of irrigation and suction. Hemostasis was achieved. The subcutaneous tissues were then reapproximated using 3-0 Vicryl. Skin was then closed using Skin Affix. The patient tolerated procedure well without any complications. She was taken to recovery room in stable condition. Job ID: [id number] DocumentID: [id number] Dictated Date: 12/15/2020 21:04:58 Marking Room Supervisor Date: 12/15/2020 22:31:42 Dictated By: AURORA CALDERON DO [facility]ITALBrian
== END 2020-12-15 13:30 | disposition home or self-care (01) ==
LOC: SDC 08:47
PROVIDERS: ATTEND Surgery
DX: N60.02 Solitary cyst of left breast (principal); N60.42 Mammary duct ectasia of left breast; K64.4 Residual hemorrhoidal skin tags; F17.210 Nicotine dependence, cigarettes, uncomplicated; Z90.49 Acquired absence of other specified parts of digestive tract; Z79.899 Other long term (current) drug therapy; Z80.49 Family history of malignant neoplasm of other genital organs; Z80.41 Family history of malignant neoplasm of ovary
CPT/HCPCS: 87081